=== PATIENT | male | born 1965 | race Caucasian/White ===

== ENCOUNTER 2022-07-23 19:41 | Observation (INO) ==
[2022-07-23] MEDS ORDERED: ALBUTEROL/IPRATROPIUM 3 ML NEB RESP TX STA ×2 (21:38→21:51)
[2022-07-23] MEDS ORDERED: SODIUM CHLORIDE 0.9% 1,000 ML IV STA (21:50)
[2022-07-23 21:59] LABS: Basophils % 0.4 % (0.0-0.8); Eosinophils # 0.1 10*3/uL (0.0-0.87); Eosinophils % 0.7 % (0.00-10.9); Hematocrit 47.9 VOL% (42.0-52.0); Hemoglobin 15.6 GM/DL (14.0-18.0); Immature Granulocytes % 0.5 %; Immature Granulocytes Absolute 0.05 #; Lymphocytes # 1.8 10*3/uL (1.4-4.0); Lymphocytes % 16.5 % (21.2-54.2); Mean Corpuscular HGB Conc 32.6 GM/DL (32-36); Mean Corpuscular Volume 82.7 FL (87-102); Mean Platelet Volume 10.6 FL (9.6-12.0); Monocytes # 0.9 10*3/uL (0.11-0.8); Monocytes % 8.5 % (1.7-12.7); Neutrophils % 73.4 % (38.7-73.9); Platelet Count 184 T/CUMM (130-400); Red Blood Count 5.79 MC/CUMM (3.8-5.5); Red Cell Distribution Width 14.5 % (9.3-17.3)
[2022-07-23] MEDS ORDERED: LEVOFLOXACIN INJ 500 MG/100 ML PREMIX IV STA (22:15)
[2022-07-23 22:23] LABS: Albumin 3.7 G/DL (3.4-5.0); Bilirubin,Total 0.6 MG/DL (0.20-1.00); Calcium 8.3 MG/DL (8.5-10.1); Osmolality,Calculated 281.3 MOS/KG (273-304); Potassium 3.8 MMOL/L (3.5-5.1); Total Protein 6.4 G/DL (6.4-8.2)
[2022-07-23] MEDS ORDERED: methylPREDNISolone SOD SUC 125 MG/2 ML VIAL IV STA (22:57)
[2022-07-23] MEDS ORDERED: ACETAMINOPHEN 325 MG TABLET PO PRN (23:07)
[2022-07-23] MEDS ORDERED: ONDANSETRON 4 MG/2 ML VIAL IV PRN (23:07)
[2022-07-23] MEDS ORDERED: SIMETHICONE CHEW 125 MG TABLET PO PRN (23:07)
[2022-07-23] MEDS ORDERED: NICOTINE 21 MG/24 HR PATCH TRANSDERM PRN (23:07)
[2022-07-24] MEDS: MONTELUKAST 10 MG TABLET PO SCH ×2 (00:04→20:54)
[2022-07-24] MEDS: BUDESONIDE/FORMOTEROL 160-4.5 INHALER 6 GM INH SCH ×3 (00:08→20:54)
[2022-07-24] MEDS ORDERED: ALBUTEROL 2.5 MG/3 ML NEB RESP TX SCH (01:00)
[2022-07-24 01:13] LABS: Arterial Base Excess iSTAT -2 MMOL/L (-2.5-2.5); Arterial Bicarbonate iSTAT 22.4 MMOL/L (20-26); Arterial O2 Saturation iSTAT 99 % (95-100); Arterial PCO2 iSTAT 38 MM HG (35-48); Arterial PO2 iSTAT 142 MM HG (80-95); Arterial Total CO2 iSTAT 24 MMO/L (23-27); Arterial pH iSTAT 7.376 (7.35-7.45)
[2022-07-24 05:21] LABS: Basophils % 0.3 % (0.0-0.8); Hematocrit 46.1 VOL% (42.0-52.0); Hemoglobin 14.8 GM/DL (14.0-18.0); Immature Granulocytes % 0.7 %; Immature Granulocytes Absolute 0.05 #; Lymphocytes # 0.7 10*3/uL (1.4-4.0); Lymphocytes % 9.5 % (21.2-54.2); Mean Corpuscular HGB Conc 32.1 GM/DL (32-36); Mean Corpuscular Volume 83.5 FL (87-102); Mean Platelet Volume 11.1 FL (9.6-12.0); Monocytes # 0.1 10*3/uL (0.11-0.8); Monocytes % 1.7 % (1.7-12.7); Neutrophils % 87.8 % (38.7-73.9); Platelet Count 170 T/CUMM (130-400); Red Blood Count 5.52 MC/CUMM (3.8-5.5); Red Cell Distribution Width 14.3 % (9.3-17.3); White Blood Count 7.2 T/CUMM (4-12)
[2022-07-24] MEDS: methylPREDNISolone SOD SUC 40 MG/1 ML VIAL IV SCH ×4 (05:30→23:10)
[2022-07-24 05:52] LABS: Calcium 9.2 MG/DL (8.5-10.1); Osmolality,Calculated 288.3 MOS/KG (273-304); Potassium 3.8 MMOL/L (3.5-5.1); Thyroid Stimulating Hormone 0.697 uIU/ml (0.358-3.74)
[2022-07-24 06:23] LABS: Bacteria,Urine Occasional /HPF (Few); Mucus,Urine Many /LPF (Occasional); RBC,Urine 2 /HPF (0-4)
[2022-07-24 06:25] LABS: Bilirubin,Urine Negative (Negative); Blood, Urine Negative (Negative); Glucose,Urine (UA) 100 mg/dL (Negative); Ketones,Urine Negative (Negative); Nitrite,Urine Negative (Negative); Protein,Urine Negative (Negative); Urine Appearance Clear (Clear); Urine Color Yellow (Yellow); Urine Specific Gravity >= 1.030 (1.001-1.035); Urine Urobilinogen 0.2 eU/dL (<2.0); Urine pH 5.5 (4.5-8.0)
[2022-07-24] MEDS: ALBUTEROL/IPRATROPIUM 3 ML NEB RESP TX SCH ×3 (07:09→19:57)
[2022-07-24] MEDS: PANTOPRAZOLE 40 MG TABLET PO SCH (09:29)
[2022-07-24] MEDS: LOSARTAN 25 MG TABLET PO SCH (09:29)
[2022-07-24] MEDS: ROSUVASTATIN 20 MG TABLET PO SCH (09:29)
[2022-07-24] MEDS: DOCUSATE SODIUM 100 MG CAPSULE PO SCH ×2 (09:30→20:55)
[2022-07-24] MEDS: NICOTINE 21 MG/24 HR PATCH TRANSDERM SCH (12:28)
[2022-07-24] MEDS ORDERED: ENOXAPARIN 40 MG/0.4 ML SYRINGE SUBCUT SCH (15:00)
[2022-07-24] MEDS ORDERED: LEVOFLOXACIN INJ 500 MG/100 ML PREMIX IV SCH (22:00)
[2022-07-25] MEDS: ALBUTEROL/IPRATROPIUM 3 ML NEB RESP TX SCH ×3 (01:06→13:49)
[2022-07-25 04:50] LABS: Basophils % 0.1 % (0.0-0.8); Eosinophils % 0.2 % (0.00-10.9); Hematocrit 44.5 VOL% (42.0-52.0); Hemoglobin 14.6 GM/DL (14.0-18.0); Immature Granulocytes % 0.8 %; Immature Granulocytes Absolute 0.17 #; Lymphocytes # 1.3 10*3/uL (1.4-4.0); Mean Corpuscular HGB Conc 32.8 GM/DL (32-36); Mean Corpuscular Volume 82.9 FL (87-102); Mean Platelet Volume 11.3 FL (9.6-12.0); Monocytes % 4.6 % (1.7-12.7); Neutrophils % 88.3 % (38.7-73.9); Platelet Count 194 T/CUMM (130-400); Red Blood Count 5.37 MC/CUMM (3.8-5.5); Red Cell Distribution Width 14.3 % (9.3-17.3); White Blood Count 21.5 T/CUMM (4-12)
[2022-07-25 05:08] LABS: Calcium 9.4 MG/DL (8.5-10.1); Osmolality,Calculated 287.1 MOS/KG (273-304); Potassium 3.7 MMOL/L (3.5-5.1)
[2022-07-25] MEDS: methylPREDNISolone SOD SUC 40 MG/1 ML VIAL IV SCH (05:16)
[2022-07-25 05:22] LABS: Lymphocytes 8 % (20-55); Platelet Estimate Adequate; Total Cells Counted 100
[2022-07-25 08:10] VITALS: BP 113/61
[2022-07-25] MEDS: NICOTINE 21 MG/24 HR PATCH TRANSDERM SCH (09:14)
[2022-07-25] MEDS: DOCUSATE SODIUM 100 MG CAPSULE PO SCH (09:15)
[2022-07-25] MEDS: ROSUVASTATIN 20 MG TABLET PO SCH (09:15)
[2022-07-25] MEDS: BUDESONIDE/FORMOTEROL 160-4.5 INHALER 6 GM INH SCH (09:15)
[2022-07-25] MEDS: LOSARTAN 25 MG TABLET PO SCH (09:15)
[2022-07-25] MEDS: PANTOPRAZOLE 40 MG TABLET PO SCH (09:15)
[2022-07-25] MEDS ORDERED: methylPREDNISolone SOD SUC 40 MG/1 ML VIAL IV SCH (17:00)
== END 2022-07-25 13:50 | disposition home or self-care (01) ==
LOC: N.EDINP 19:41 → N.ED 19:41 → SUATTDRO 23:07 → N.3E 07-24 02:02
PROVIDERS: ADMIT Internal Medicine; ATTEND Internal Medicine

== ENCOUNTER 2022-08-02 03:24 | Inpatient (IN) ==
[2022-08-02 04:01] LABS: Basophils # 0.1 10*3/uL (0.0-0.2); Basophils % 0.2 % (0.0-0.8); Eosinophils % 0.1 % (0.00-10.9); Hematocrit 46.6 VOL% (42.0-52.0); Hemoglobin 15.5 GM/DL (14.0-18.0); Immature Granulocytes % 3.4 %; Immature Granulocytes Absolute 0.95 #; Lymphocytes # 1.3 10*3/uL (1.4-4.0); Lymphocytes % 4.6 % (21.2-54.2); Mean Corpuscular HGB Conc 33.3 GM/DL (32-36); Mean Corpuscular Volume 82.2 FL (87-102); Mean Platelet Volume 10.4 FL (9.6-12.0); Monocytes # 1.1 10*3/uL (0.11-0.8); Monocytes % 3.9 % (1.7-12.7); Neutrophils % 87.8 % (38.7-73.9); Platelet Count 231 T/CUMM (130-400); Red Blood Count 5.67 MC/CUMM (3.8-5.5); Red Cell Distribution Width 14.6 % (9.3-17.3)
[2022-08-02 04:27] LABS: Calcium 8.5 MG/DL (8.5-10.1); Osmolality,Calculated 283.4 MOS/KG (273-304); Potassium 4.6 MMOL/L (3.5-5.1)
[2022-08-02] MEDS ORDERED: LORazepam 2 MG/1 ML VIAL IV STA (04:41)
[2022-08-02] MEDS ORDERED: ALBUTEROL 2.5 MG/3 ML NEB RESP TX STA (04:44)
[2022-08-02 05:02] LABS: Lymphocytes 4 % (20-55); Platelet Estimate Adequate; Total Cells Counted 100
[2022-08-02] MEDS ORDERED: ENOXAPARIN 30 MG/0.3 ML SYRINGE SUBCUT STA (06:55)
[2022-08-02] MEDS ORDERED: PIPERACILLIN/TAZOBACTAM 3,375 MG in SODIUM CHLORIDE 0.9% 100 ML IV STA (06:55)
[2022-08-02] MEDS ORDERED: MORPHINE 2 MG/1 ML SYRINGE IV STA (07:39)
[2022-08-02] MEDS ORDERED: ONDANSETRON 4 MG/2 ML VIAL IV ONE (07:39)
[2022-08-02] MEDS ORDERED: ACETAMINOPHEN 325 MG TABLET PO PRN (08:05)
[2022-08-02] MEDS ORDERED: hydrALAZINE 20 MG/1 ML VIAL IV PRN (08:05)
[2022-08-02] MEDS ORDERED: ONDANSETRON 4 MG/2 ML VIAL IV PRN (08:05)
[2022-08-02] MEDS ORDERED: NICOTINE 21 MG/24 HR PATCH TRANSDERM SCH (09:00)
[2022-08-02] MEDS: PANTOPRAZOLE 40 MG TABLET PO SCH (09:25)
[2022-08-02] MEDS: ROSUVASTATIN 20 MG TABLET PO SCH (09:25)
[2022-08-02] MEDS: BUDESONIDE/FORMOTEROL 160-4.5 INHALER 6 GM INH SCH ×2 (09:25→20:18)
[2022-08-02] MEDS: NICOTINE 21 MG/24 HR PATCH TRANSDERM SCH (09:26)
[2022-08-02] MEDS: MORPHINE 2 MG/1 ML SYRINGE IV PRN ×3 (11:59→22:33)
[2022-08-02] MEDS: ALBUTEROL 2.5 MG/3 ML NEB RESP TX SCH ×2 (12:10→19:40)
[2022-08-02] MEDS: PIPERACILLIN/TAZOBACTAM 3,375 MG in SODIUM CHLORIDE 0.9% 100 ML IV SCH ×2 (14:54→22:33)
[2022-08-02] MEDS: APIXABAN 5 MG TABLET PO SCH (20:17)
[2022-08-02] MEDS: MONTELUKAST 10 MG TABLET PO SCH (20:18)
[2022-08-03] MEDS: MORPHINE 2 MG/1 ML SYRINGE IV PRN ×4 (02:37→21:48)
[2022-08-03] MEDS: ALBUTEROL 2.5 MG/3 ML NEB RESP TX SCH ×4 (02:46→19:41)
[2022-08-03 06:45] LABS: Basophils # 0.1 10*3/uL (0.0-0.2); Basophils % 0.3 % (0.0-0.8); Hematocrit 48.5 VOL% (42.0-52.0); Hemoglobin 15.8 GM/DL (14.0-18.0); Immature Granulocytes % 2.3 %; Immature Granulocytes Absolute 0.91 #; Lymphocytes % 2.4 % (21.2-54.2); Mean Corpuscular HGB Conc 32.6 GM/DL (32-36); Mean Corpuscular Volume 83.8 FL (87-102); Mean Platelet Volume 11.1 FL (9.6-12.0); Monocytes # 1.4 10*3/uL (0.11-0.8); Monocytes % 3.4 % (1.7-12.7); Neutrophils % 91.6 % (38.7-73.9); Platelet Count 195 T/CUMM (130-400); Red Blood Count 5.79 MC/CUMM (3.8-5.5); Red Cell Distribution Width 15.6 % (9.3-17.3); White Blood Count 39.6 T/CUMM (4-12)
[2022-08-03 07:02] LABS: Calcium 9.1 MG/DL (8.5-10.1); Osmolality,Calculated 275.1 MOS/KG (273-304); Potassium 3.9 MMOL/L (3.5-5.1)
[2022-08-03 07:13] LABS: Band Neutrophils 6 % (0-10); Lymphocytes 1 % (20-55); Total Cells Counted 100
[2022-08-03 07:14] LABS: Hypochromia Slight
[2022-08-03 07:15] LABS: Microcytosis Slight
[2022-08-03] MEDS: PANTOPRAZOLE 40 MG TABLET PO SCH (08:36)
[2022-08-03] MEDS: APIXABAN 5 MG TABLET PO SCH ×2 (08:36→20:53)
[2022-08-03] MEDS: ROSUVASTATIN 20 MG TABLET PO SCH (08:36)
[2022-08-03] MEDS: NICOTINE 21 MG/24 HR PATCH TRANSDERM SCH (08:37)
[2022-08-03] MEDS: PIPERACILLIN/TAZOBACTAM 3,375 MG in SODIUM CHLORIDE 0.9% 100 ML IV SCH ×2 (08:37→17:37)
[2022-08-03] MEDS: BUDESONIDE/FORMOTEROL 160-4.5 INHALER 6 GM INH SCH ×2 (08:45→20:54)
[2022-08-03] MEDS ORDERED: NAPROXEN EC 375 MG TABLET PO SCH (13:30)
[2022-08-03] MEDS: NAPROXEN 250 MG TABLET PO SCH ×2 (13:50→20:54)
[2022-08-03] MEDS: MONTELUKAST 10 MG TABLET PO SCH (20:53)
[2022-08-04] MEDS: ALBUTEROL 2.5 MG/3 ML NEB RESP TX SCH ×3 (00:30→19:40)
[2022-08-04] MEDS: PIPERACILLIN/TAZOBACTAM 3,375 MG in SODIUM CHLORIDE 0.9% 100 ML IV SCH ×3 (01:32→18:05)
[2022-08-04 04:46] LABS: Basophils % 0.1 % (0.0-0.8); Eosinophils # 0.1 10*3/uL (0.0-0.87); Eosinophils % 0.3 % (0.00-10.9); Hematocrit 50.2 VOL% (42.0-52.0); Hemoglobin 16.3 GM/DL (14.0-18.0); Immature Granulocytes % 1.7 %; Immature Granulocytes Absolute 0.47 #; Lymphocytes % 3.6 % (21.2-54.2); Mean Corpuscular HGB Conc 32.5 GM/DL (32-36); Mean Corpuscular Volume 85.8 FL (87-102); Mean Platelet Volume 11.2 FL (9.6-12.0); Monocytes # 0.9 10*3/uL (0.11-0.8); Monocytes % 3.2 % (1.7-12.7); Neutrophils % 91.1 % (38.7-73.9); Platelet Count 174 T/CUMM (130-400); Red Blood Count 5.85 MC/CUMM (3.8-5.5); Red Cell Distribution Width 15.9 % (9.3-17.3); White Blood Count 27.8 T/CUMM (4-12)
[2022-08-04] MEDS: MORPHINE 2 MG/1 ML SYRINGE IV PRN ×2 (05:06→15:25)
[2022-08-04 05:19] LABS: Albumin 2.9 G/DL (3.4-5.0); Bilirubin,Total 1.1 MG/DL (0.20-1.00); Calcium 9.2 MG/DL (8.5-10.1); Potassium 4.2 MMOL/L (3.5-5.1); Total Protein 7.1 G/DL (6.4-8.2)
[2022-08-04 05:37] LABS: Eosinophils 1 % (0-10); Lymphocytes 3 % (20-55); Microcytosis Slight; Total Cells Counted 100
[2022-08-04] MEDS: NICOTINE 21 MG/24 HR PATCH TRANSDERM SCH (08:57)
[2022-08-04] MEDS: ROSUVASTATIN 20 MG TABLET PO SCH (08:59)
[2022-08-04] MEDS: NAPROXEN 250 MG TABLET PO SCH (08:59)
[2022-08-04] MEDS: APIXABAN 5 MG TABLET PO SCH ×2 (08:59→21:45)
[2022-08-04] MEDS: PANTOPRAZOLE 40 MG TABLET PO SCH (08:59)
[2022-08-04] MEDS: BUDESONIDE/FORMOTEROL 160-4.5 INHALER 6 GM INH SCH ×2 (09:13→21:45)
[2022-08-04] MEDS ORDERED: methylPREDNISolone SOD SUC 40 MG/1 ML VIAL IM SCH (13:00)
[2022-08-04] MEDS: methylPREDNISolone SOD SUC 40 MG/1 ML VIAL IV SCH (15:20)
[2022-08-04] MEDS ORDERED: guaiFENesin/DM ER 600-30 MG TABLET PO PRN (17:11)
[2022-08-04] MEDS: LINEZOLID INJ 600 MG/300 ML PREMIX IV SCH (21:45)
[2022-08-04] MEDS: MONTELUKAST 10 MG TABLET PO SCH (21:45)
[2022-08-05] MEDS: ALBUTEROL 2.5 MG/3 ML NEB RESP TX SCH ×4 (00:07→20:00)
[2022-08-05] MEDS: PIPERACILLIN/TAZOBACTAM 3,375 MG in SODIUM CHLORIDE 0.9% 100 ML IV SCH ×3 (01:18→19:47)
[2022-08-05] MEDS: methylPREDNISolone SOD SUC 40 MG/1 ML VIAL IV SCH ×2 (03:23→19:47)
[2022-08-05 05:26] LABS: Basophils % 0.1 % (0.0-0.8); Hematocrit 40.7 VOL% (42.0-52.0); Hemoglobin 13.4 GM/DL (14.0-18.0); Immature Granulocytes % 1.6 %; Immature Granulocytes Absolute 0.39 #; Lymphocytes # 0.4 10*3/uL (1.4-4.0); Lymphocytes % 1.5 % (21.2-54.2); Mean Corpuscular HGB Conc 32.9 GM/DL (32-36); Mean Corpuscular Volume 83.7 FL (87-102); Mean Platelet Volume 11.2 FL (9.6-12.0); Monocytes # 0.7 10*3/uL (0.11-0.8); Neutrophils % 93.8 % (38.7-73.9); Platelet Count 173 T/CUMM (130-400); Red Blood Count 4.86 MC/CUMM (3.8-5.5); Red Cell Distribution Width 14.8 % (9.3-17.3); White Blood Count 24.3 T/CUMM (4-12)
[2022-08-05 05:51] LABS: Hypochromia Slight; Lymphocytes 1 % (20-55); Microcytosis Slight; Platelet Estimate Adequate; Total Cells Counted 100
[2022-08-05 05:57] LABS: Albumin 2.3 G/DL (3.4-5.0); Bilirubin,Total 0.6 MG/DL (0.20-1.00); Calcium 9.5 MG/DL (8.5-10.1); Osmolality,Calculated 274.2 MOS/KG (273-304); Total Protein 6.4 G/DL (6.4-8.2)
[2022-08-05] MEDS: LINEZOLID INJ 600 MG/300 ML PREMIX IV SCH ×2 (09:48→23:07)
[2022-08-05] MEDS: NICOTINE 21 MG/24 HR PATCH TRANSDERM SCH (09:53)
[2022-08-05] MEDS: ROSUVASTATIN 20 MG TABLET PO SCH (09:53)
[2022-08-05] MEDS: PANTOPRAZOLE 40 MG TABLET PO SCH (09:54)
[2022-08-05] MEDS: APIXABAN 5 MG TABLET PO SCH ×2 (09:54→20:34)
[2022-08-05] MEDS: BUDESONIDE/FORMOTEROL 160-4.5 INHALER 6 GM INH SCH ×2 (09:55→20:34)
[2022-08-05] MEDS: MONTELUKAST 10 MG TABLET PO SCH (20:34)
[2022-08-06] MEDS: ALBUTEROL 2.5 MG/3 ML NEB RESP TX SCH ×4 (00:30→19:40)
[2022-08-06] MEDS: PIPERACILLIN/TAZOBACTAM 3,375 MG in SODIUM CHLORIDE 0.9% 100 ML IV SCH ×2 (00:39→09:44)
[2022-08-06] MEDS: methylPREDNISolone SOD SUC 40 MG/1 ML VIAL IV SCH ×2 (02:09→14:16)
[2022-08-06 06:09] LABS: Basophils % 0.1 % (0.0-0.8); Hematocrit 38.6 VOL% (42.0-52.0); Hemoglobin 12.2 GM/DL (14.0-18.0); Immature Granulocytes % 0.9 %; Immature Granulocytes Absolute 0.15 #; Lymphocytes # 0.4 10*3/uL (1.4-4.0); Lymphocytes % 2.6 % (21.2-54.2); Mean Corpuscular HGB Conc 31.6 GM/DL (32-36); Mean Corpuscular Volume 83.4 FL (87-102); Mean Platelet Volume 10.5 FL (9.6-12.0); Monocytes # 0.7 10*3/uL (0.11-0.8); Monocytes % 4.3 % (1.7-12.7); Neutrophils % 92.1 % (38.7-73.9); Platelet Count 190 T/CUMM (130-400); Red Blood Count 4.63 MC/CUMM (3.8-5.5); Red Cell Distribution Width 15.1 % (9.3-17.3); White Blood Count 17.2 T/CUMM (4-12)
[2022-08-06 06:31] LABS: Albumin 2.1 G/DL (3.4-5.0); Bilirubin,Total 0.4 MG/DL (0.20-1.00); Calcium 9.4 MG/DL (8.5-10.1); Osmolality,Calculated 277.8 MOS/KG (273-304); Potassium 4.2 MMOL/L (3.5-5.1); Total Protein 6.2 G/DL (6.4-8.2)
[2022-08-06 06:36] LABS: Lymphocytes 2 % (20-55); Platelet Estimate Adequate; Total Cells Counted 100
[2022-08-06] MEDS: BUDESONIDE/FORMOTEROL 160-4.5 INHALER 6 GM INH SCH ×2 (08:41→20:30)
[2022-08-06] MEDS: ROSUVASTATIN 20 MG TABLET PO SCH (08:42)
[2022-08-06] MEDS: NICOTINE 21 MG/24 HR PATCH TRANSDERM SCH (08:42)
[2022-08-06] MEDS: APIXABAN 5 MG TABLET PO SCH ×2 (08:42→20:30)
[2022-08-06] MEDS: PANTOPRAZOLE 40 MG TABLET PO SCH (08:42)
[2022-08-06] MEDS: LINEZOLID INJ 600 MG/300 ML PREMIX IV SCH (08:44)
[2022-08-06] MEDS: MONTELUKAST 10 MG TABLET PO SCH (20:30)
[2022-08-06] MEDS: LINEZOLID 600 MG TABLET PO SCH (20:30)
[2022-08-07] MEDS: ALBUTEROL 2.5 MG/3 ML NEB RESP TX SCH ×3 (01:35→13:20)
[2022-08-07] MEDS: methylPREDNISolone SOD SUC 40 MG/1 ML VIAL IV SCH (03:00)
[2022-08-07 05:36] LABS: Basophils % 0.1 % (0.0-0.8); Hematocrit 38.7 VOL% (42.0-52.0); Hemoglobin 12.5 GM/DL (14.0-18.0); Immature Granulocytes % 0.6 %; Immature Granulocytes Absolute 0.08 #; Lymphocytes # 0.8 10*3/uL (1.4-4.0); Lymphocytes % 5.3 % (21.2-54.2); Mean Corpuscular HGB Conc 32.3 GM/DL (32-36); Mean Corpuscular Volume 82.7 FL (87-102); Mean Platelet Volume 10.6 FL (9.6-12.0); Monocytes # 1.2 10*3/uL (0.11-0.8); Monocytes % 8.8 % (1.7-12.7); Neutrophils % 85.2 % (38.7-73.9); Platelet Count 218 T/CUMM (130-400); Red Blood Count 4.68 MC/CUMM (3.8-5.5); Red Cell Distribution Width 15.1 % (9.3-17.3); White Blood Count 14.2 T/CUMM (4-12)
[2022-08-07 06:01] LABS: Alanine Aminotransferase 21 U/L (16-61); Albumin 2.1 G/DL (3.4-5.0); Alkaline Phosphatase 120 U/L (45-117); Aspartate Amino Transferase 26 U/L (0-37); Bilirubin,Total < 0.39 MG/DL (0.20-1.00); Blood Urea Nitrogen 25 MG/DL (7-18); Carbon Dioxide 25 MMOL/L (21-32); Chloride 106 MMOL/L (98-107); Glucose 117 MG/DL (74-106); Osmolality,Calculated 279.7 MOS/KG (273-304); Potassium 4.1 MMOL/L (3.5-5.1); Sodium 138 MMOL/L (136-145)
[2022-08-07] MEDS: NICOTINE 21 MG/24 HR PATCH TRANSDERM SCH (10:45)
[2022-08-07] MEDS: APIXABAN 5 MG TABLET PO SCH (10:45)
[2022-08-07] MEDS: ROSUVASTATIN 20 MG TABLET PO SCH (10:45)
[2022-08-07] MEDS: BUDESONIDE/FORMOTEROL 160-4.5 INHALER 6 GM INH SCH (10:45)
[2022-08-07] MEDS: LINEZOLID 600 MG TABLET PO SCH (10:45)
[2022-08-07] MEDS: PANTOPRAZOLE 40 MG TABLET PO SCH (10:45)
[2022-08-07 11:41] VITALS: BP 133/56
[2022-08-10] MEDS ORDERED: APIXABAN 5 MG TABLET PO SCH (09:00)
== END 2022-08-07 15:15 | disposition home or self-care (01) | DRG 177 ==
LOC: N.ED 03:24 → SUATTDRO 08:05 → N.EDINP 08:05 → N.3E 08:58 → N.2E 08-03 16:40
PROVIDERS: ADMIT Family Medicine; ATTEND Internal Medicine